=== PATIENT | male | born 1995 | race Caucasian/White ===

== ENCOUNTER 2021-02-08 12:29 | Outpatient (CLI) | payer OTHER ==
[2021-02-08] MEDS ORDERED: LIDOCAINE-MPF 1%, 5ML ONE (12:47)
[2021-02-08] MEDS ORDERED: ROPivacaine/PF 0.2%, 10 ML ONE (12:47)
[2021-02-08] MEDS ORDERED: GADOTERATE 5 MMOL/10 ML VIAL ONE (13:33)
== END 2021-02-08 23:59 | disposition home or self-care (01) ==
LOC: RAD 12:29
PROVIDERS: ATTEND Physician Assistant Surgical
DX: M25.312 Other instability, left shoulder (principal); M25.812 Other specified joint disorders, left shoulder
CPT/HCPCS: 23350; 73040; 73222; A9575; J2795